=== PATIENT | female | born 1965 | race Caucasian/White ===

== ENCOUNTER → 2017-06-28 | Outpatient (CLI) | payer BC ==
[~2017-06-28] VITALS: Ht 171.4 cm; Wt 163.2 kg
[~2017-06-28] MED LIST: CYTOMEL25 MCG PO; ERGOCALCIF50000 UNIT PO; FIORICET 50-301 EACH PO; FUROSEMIDE40 MG PO; LASIX40 MG PO; LEVOTHYROXINE50 MCG PO; NEXIUM20 MG PO; POTASSIUM GLUCO2 MEQ PO; SYNTHROID200 MCG PO; VENLAFAXINE HC150 M1 PO; XANAX1 MG PO
== END | disposition home or self-care (01) ==
LOC: AMB 13:27
DX: Z12.11 Encounter for screening for malignant neoplasm of colon (principal); K63.5 Polyp of colon; Z86.010 Personal history of colon polyps; E66.3 Overweight; Z98.84 Bariatric surgery status; K21.9 Gastro-esophageal reflux disease without esophagitis; E05.90 Thyrotoxicosis, unspecified without thyrotoxic crisis or storm; F41.9 Anxiety disorder, unspecified; Z90.710 Acquired absence of both cervix and uterus; Z90.49 Acquired absence of other specified parts of digestive tract; Z88.2 Allergy status to sulfonamides; Z88.1 Allergy status to other antibiotic agents; Z88.5 Allergy status to narcotic agent
CPT/HCPCS: 88305

== ENCOUNTER → 2017-10-25 | Outpatient (CLI) | payer BC ==
[~2017-10-25] VITALS: Ht 172.7 cm; Wt 158.7 kg
[~2017-10-25] MED LIST changes: +BUSPAR30 MG PO; +ESSENTIAL WOMA1 EAC1 PO; +POTASSIUM-9999 MG PO; +PROTONIX40 MG PO
== END | disposition home or self-care (01) ==
LOC: AMB 13:04
DX: K29.60 Other gastritis without bleeding (principal); K21.9 Gastro-esophageal reflux disease without esophagitis; K44.9 Diaphragmatic hernia without obstruction or gangrene; Z98.84 Bariatric surgery status; E66.3 Overweight; Z68.43 Body mass index [BMI] 50.0-59.9, adult; Z86.010 Personal history of colon polyps; E05.90 Thyrotoxicosis, unspecified without thyrotoxic crisis or storm; F41.9 Anxiety disorder, unspecified; Z90.49 Acquired absence of other specified parts of digestive tract; Z90.710 Acquired absence of both cervix and uterus; Z88.0 Allergy status to penicillin; Z88.1 Allergy status to other antibiotic agents; Z88.5 Allergy status to narcotic agent
CPT/HCPCS: 88305; 88342 TC; J2250; J2405